=== PATIENT | male | born 1990 | race Caucasian/White ===

== ENCOUNTER 2019-03-03 10:08 | Emergency (ER) | payer BC, SELFPAY ==
[2019-03-03 10:09] VITALS: BP 111/70; PULSE 79; RESP 16; TEMP 36.7; O2SAT 95; BMI 25.0
--- NOTE | 2019-03-03 10:19 | ED.VIS.GEN ---
History of Present Illness Chief Complaint: Laceration Informant: Patient Onset: Today Current Severity: Mild Maximum Severity: Mild Narrative: Patient sustained an accidental laceration of his right third digit on the ulnar side and flexor side. No paresthesias no inability to flex or extend. Pain is mild. Tetanus is not up-to-date. Past Medical History - Allergies and Home Meds Allergies/Adverse Reactions: Allergies No Known Allergies Allergy (Verified 03/03/19 10:09) Primary Care Physician: Cynthia Phillips MD [Primary Care Provider] - Past Medical History: None Smoking Status: Never smoker Review of Systems General: Denies: Sweats Musculoskeletal: Reports: - - As in HPI Skin: Reports: - - Laceration Neurological: Denies: Parasthesia, Numbness Hematologic: Denies: Easy bruising, Easy bleeding Physical Exam General: Well nourished, Well developed Cardiovascular: Regular rate Respiratory: No distress Extremities: - - 2 cm laceration ulnar side of the third digit on the right. Normal flexion and extension without any tendon compromise. Skin: - - Laceration as above Neurological: Normal Strength, Normal Sensation Diagnostic/Tx/Re-eval - Medical Decision Making Tetanus will be updated, this is a 2 cm laceration mostly on the flexor side of the digits after discussing with the patient he wanted Dermabond instead of stitches. Procedures - Lacerations No standard instances Length: 0.79 in Depth: Skin Shape: Linear Prep: Shure-Clens Laceration repair: Dermabond Comment: Wound approximated well. Patient tolerated procedure well ED Disposition - Plan for ED Patient: Disposition: Psychiatric Hospital or Unit Diagnosis: Laceration Instructions: LACERATION, Hand, LACERATION, Extremity (Skin Glue) Referrals: Cynthia Phillips MD [Primary Care Provider] - 1 Week
[2019-03-03] MEDS: Diphth,Pertuss(Acell),Tet Vac 0.5 ML Vial IM (10:37)
== END 2019-03-03 10:50 | disposition home or self-care (01) ==
PROVIDERS: Emergency Provider Emergency Medicine; Family Provider Family Medicine; PCP Family Medicine
DX: S61.212A Laceration without foreign body of right middle finger without damage to nail, initial encounter (principal); Z23 Encounter for immunization; W26.9XXA Contact with unspecified sharp object(s), initial encounter; Y93.89 Activity, other specified; Y92.89 Other specified places as the place of occurrence of the external cause; Y99.8 Other external cause status
CPT/HCPCS: 12001; 90471; 90715; 99282